=== PATIENT | female | born 1980 | race Two or more races ===

== ENCOUNTER 2019-08-07 08:17 | Day surgery (SDC) | payer OTHER ==
[~2019-08-07 08:17] MED LIST: METAMUCIL0.4 GM PO
== END 2019-08-07 11:26 | disposition home or self-care (01) ==
LOC: AMB-ENDOS 08:17
DX: N80.5 Endometriosis of intestine (principal)

== ENCOUNTER 2019-08-11 06:54 | Day surgery (SDC) | payer OTHER ==
[2019-08-11] MEDS ORDERED: PERCOCET 5-3251 EACH PO (13:01)
[2019-08-11] MEDS ORDERED: COLACE100 MG PO (13:01)
== END 2019-08-11 19:05 | disposition home or self-care (01) ==
LOC: CIR.AMB 06:54
DX: K60.1 Chronic anal fissure (principal); K62.4 Stenosis of anus and rectum